=== PATIENT | female | born 1980 | race Caucasian/White ===

== ENCOUNTER 2017-01-25 17:49 | Emergency (ER) | payer BC ==
[2017-01-25 17:59] VITALS: BP 120/80
[2017-01-25] MEDS ORDERED: Sodium Chloride 0.9% 10 ML Syringe FLUSH PRN (18:16)
[2017-01-25] MEDS ORDERED: Sodium Chloride 0.9% 1,000 ML IV ONE (18:16)
[2017-01-25] MEDS ORDERED: Ondansetron 4 MG/2 ML SDV IVPUSH ONE (18:16)
[2017-01-25] MEDS ORDERED: Diatrizoate Meglumine/Diatrizoate Sodium 37% 120 ML Bottle PO ONE (19:29)
[2017-01-25] MEDS ORDERED: Sodium Chloride 0.9% 10 ML Syringe FLUSH ONE (19:29)
[2017-01-25] MEDS ORDERED: Iopamidol 612 MG/ML 100 ML Bottle IVPUSH ONE (19:29)
--- NOTE | 2017-01-25 20:22 | EDM.PDOC ---
ED HPI GI/ABDOMINAL - General Chief Complaint: Abdominal Pain Stated Complaint: LOWER ABDOMINAL PAIN Time Seen by Provider: 01/25/17 18:18 Source of Information: Reports: Patient History Limitations: Reports: No limitations - History of Present Illness INITIAL COMMENTS - FREE TEXT/NARRATIVE: Issue presents for evaluation and treatment of abdominal pain. Patient reports that the vomiting started about one hour prior to arrival in the ER. She states she was making dinner at that time. She describes it as a sharp sensation located in the periumbilical area and lower quadrants. She states that the pain is currently a 4-10 and describes it as a sharp sensation. She reports associated symptoms of nausea, dizziness, fevers and chills. She reports that her last bowel movement was earlier today. She denies any diarrhea, constipation or any bloody stools. She denies any dysuria, hematuria, change in urinary color. Patient denies any chance of . Her last menstrual period was 3 weeks ago. Location: periumbilical Quality: Reports: stabbing Severity: severe - Related Data Allergies/ADRs: Allergies Allergy/AdvReac Type Severity Reaction Status Date / Time No Known Allergies Allergy Verified 01/25/17 17:56 Home Meds: Home Meds . [No Known Home Meds] 01/25/17 [History] Past Medical History - Past Health History Medical/Surgical History: Denies Medical/Surgical History Other Musculoskeletal History: tumor resection out of ankle Social & Family History - Tobacco Use Smoking Status *Q: Current Every Day Smoker Years of Tobacco use: 20 Packs/Tins Daily: 0.5 - Recreational Drug Use Recreational Drug Use: No ED ROS GENERAL - Review of Systems Review Of Systems: See Below Constitutional: Denies: fever GI/Abdominal: Reports: Abdominal pain, Nausea. Denies: Constipation, Diarrhea, Hematochezia, Melena, Vomiting : Reports: no symptoms. Denies: dysuria, hematuria Neurological: Reports: dizziness ED EXAM, GI/ABD - Physical Exam Exam: See Below Exam Limited By: No limitations General Appearance: alert, WD/WN, no apparent distress, other (hirturism to the mandible; acne to the face) Respiratory/Chest: no respiratory distress, lungs clear, normal breath sounds Cardiovascular: normal peripheral pulses, regular rate, rhythm, no murmur GI/Abdominal: normal bowel sounds, soft, McBurney's sign. No: rebound, psoas sign, obturator sign Neurological: alert, oriented, normal cognition Psychiatric: normal affect, normal mood Skin Exam: Warm, Dry, Normal color Course - Vital Signs Last Recorded V/S: Last Vital Signs Temp 36.1 C 01/25/17 17:57 Pulse 84 01/25/17 17:57 Resp 18 01/25/17 17:57 BP 120/80 01/25/17 17:57 Pulse Ox 100 01/25/17 17:57 - Orders/Labs/Meds Orders: Active Orders 24 hr Category Date Time Status Peripheral IV Care [RC] . DIRECTED Care 01/25/17 18:16 Active Abdomen Pelvis w Cont [CT] Stat Exams 01/25/17 18:16 Taken Peripheral IV Insertion Adult [OM.PC] Routine Oth 01/25/17 18:16 Ordered Labs: Laboratory Tests 01/25/17 01/25/17 01/25/17 Range/Units 18:23 18:23 18:23 WBC 10.68 H (3.98-10.04) K/mm3 RBC 3.60 L (3.98-5.22) M/mm3 Hgb 11.2 (11.2-15.7) gm/L Hct 32.6 L (34.1-44.9) % MCV 90.6 (79.4-94.8) fl MCH 31.1 (25.6-32.2) pg MCHC 34.4 (32.2-35.5) g/dl RDW Std Deviation 45.5 (36.4-46.3) fL Plt Count 243 (182-369) K/mm3 MPV 11.4 (9.4-12.3) fl Neutrophils % (Manual) 63 H (40-60) % Band Neutrophils % 0 (0-10) % Lymphocytes % (Manual) 30 (20-40) % Atypical Lymphs % 0 % Monocytes % (Manual) 7 (2-10) % Eosinophils % (Manual) 0 L (0.7-5.8) % Basophils % (Manual) 0 L (0.1-1.2) Platelet Estimate Adequate Plt Morphology Comment Normal RBC Morph Comment Normal Sodium 138 (136-145) mEq/L Potassium 3.3 L (3.5-5.1) mEq/L Chloride 104 (98-107) mEq/L Carbon Dioxide 25 (21-32) mEq/L Anion Gap 12.3 (5-15) BUN 10 (7-18) mg/dL Creatinine 0.8 (0.55-1.02) mg/dL Est Cr Clr Drug Dosing 92.76 mL/min Estimated GFR (MDRD) > 60 (>60) mL/min BUN/Creatinine Ratio 12.5 L (14-18) Glucose 100 (74-106) mg/dL Calcium 8.5 (8.5-10.1) mg/dL Total Bilirubin 0.2 (0.2-1.0) mg/dL AST 21 (15-37) U/L ALT 30 (14-59) U/L Alkaline Phosphatase 52 (46-116) U/L C-Reactive Protein < 0.2 (<1.0) mg/dL Total Protein 6.8 (6.4-8.2) g/dl Albumin 3.5 (3.4-5.0) g/dl Globulin 3.3 gm/dL Albumin/Globulin Ratio 1.1 (1-2) HCG, Qual Negative (NEGATIVE) Urine Color (Yellow) Urine Appearance (Clear) Urine pH (5.0-8.0) Ur Specific [place] (1.005-1.030) Urine Protein (Negative) Urine Glucose (UA) (Negative) Urine Ketones (Negative) Urine Occult Blood (Negative) Urine Nitrite (Negative) Urine Bilirubin (Negative) Urine Urobilinogen (0.2-1.0) Ur Leukocyte Esterase (Negative) Urine RBC (0-5) /hpf Urine WBC (0-5) /hpf Ur Epithelial Cells (0-5) /hpf Urine Bacteria (FEW) /hpf Urine Mucus (FEW) /hpf /05/08 Range/Units 19:08 WBC (3.98-10.04) K/mm3 RBC (3.98-5.22) M/mm3 Hgb (11.2-15.7) gm/L Hct (34.1-44.9) % MCV (79.4-94.8) fl MCH (25.6-32.2) pg MCHC (32.2-35.5) g/dl RDW Std Deviation (36.4-46.3) fL Plt Count (182-369) K/mm3 MPV (9.4-12.3) fl Neutrophils % (Manual) (40-60) % Band Neutrophils % (0-10) % Lymphocytes % (Manual) (20-40) % Atypical Lymphs % % Monocytes % (Manual) (2-10) % Eosinophils % (Manual) (0.7-5.8) % Basophils % (Manual) (0.1-1.2) Platelet Estimate Plt Morphology Comment RBC Morph Comment Sodium (136-145) mEq/L Potassium (3.5-5.1) mEq/L Chloride (98-107) mEq/L Carbon Dioxide (21-32) mEq/L Anion Gap (5-15) BUN (7-18) mg/dL Creatinine (0.55-1.02) mg/dL Est Cr Clr Drug Dosing mL/min Estimated GFR (MDRD) (>60) mL/min BUN/Creatinine Ratio (14-18) Glucose (74-106) mg/dL Calcium (8.5-10.1) mg/dL Total Bilirubin (0.2-1.0) mg/dL AST (15-37) U/L ALT (14-59) U/L Alkaline Phosphatase (46-116) U/L C-Reactive Protein (<1.0) mg/dL Total Protein (6.4-8.2) g/dl Albumin (3.4-5.0) g/dl Globulin gm/dL Albumin/Globulin Ratio (1-2) HCG, Qual (NEGATIVE) Urine Color Yellow (Yellow) Urine Appearance Clear (Clear) Urine pH 6.0 (5.0-8.0) Ur Specific [place] 1.020 (1.005-1.030) Urine Protein Negative (Negative) Urine Glucose (UA) Negative (Negative) Urine Ketones Negative (Negative) Urine Occult Blood Negative (Negative) Urine Nitrite Negative (Negative) Urine Bilirubin Negative (Negative) Urine Urobilinogen 0.2 (0.2-1.0) Ur Leukocyte Esterase Trace H (Negative) Urine RBC 0-5 (0-5) /hpf Urine WBC 0-5 (0-5) /hpf Ur Epithelial Cells 0-5 (0-5) /hpf Urine Bacteria Rare (FEW) /hpf Urine Mucus Not seen (FEW) /hpf Meds: Medications Discontinued Medications Generic Name Dose Route Start Last Admin Trade Name Freq PRN Reason Stop Dose Admin Diatrizoate Meglum/Diatrizoate Sod 90 ml 01/25/17 19:29 01/25/17 19:47 Gastrografin 37% PO 01/25/17 19:30 90 ml ONETIME ONE Administration Sodium Chloride 1,000 mls @ 999 mls/hr 01/25/17 18:16 01/25/17 18:29 Normal Saline IV 01/25/17 19:16 999 mls/hr ONETIME ONE Administration Iopamidol 100 ml 01/25/17 19:29 01/25/17 19:48 Isovue-300 (61%) IVPUSH 01/25/17 19:30 100 ml ONETIME ONE Administration Ondansetron HCl 4 mg 01/25/17 18:16 01/25/17 18:29 Zofran IVPUSH 01/25/17 18:17 4 mg ONETIME ONE Administration Sodium Chloride 10 ml 01/25/17 18:16 01/25/17 18:29 Saline Flush FLUSH 10 ml ASDIRECTED PRN Administration Keep Vein Open Sodium Chloride 10 ml 01/25/17 19:29 01/25/17 19:48 Saline Flush FLUSH 01/25/17 19:30 10 ml ONETIME ONE Administration - Radiology Interpretation Free Text/Narrative:: CT abdomen and pelvis impression per Dr. Mejía: 1.Mild bowel wall thickening within proximal jejunum possibly due to gastroenteritis if this correlates with the patient's clinical symptoms . 2. Ct study of the abdomen and pelvis is otherwise unremarkable. CT Results Date: 01/25/17 - Re-Assessments/Exams Free Text/Narrative Re-Assessment/Exam: 01/25/17 19:23 Labs have returned. WBC slightly elevated at 10.68, hgb is 11.2 and plts are 243 Sodium is 138, potassium is 3.3, chloride is 104. Anion gap is 12.3 CRP is normal at <0.2 HCG is negative. UA is negative for blood, nitrites, leuks, ketones and glucose. 01/25/17 21:[address] results with the patient. Pain has improved since first arriving to the ER. Will discharge home at this time. Departure - Departure Time of Disposition: 21:31 Disposition: Home, Self-Care 01 Condition: good Clinical Impression: Gastroenteritis Instructions: Viral Gastroenteritis, Adult, [id number] Referrals: Gregg Rosenberg MD [Primary Care Provider] - Forms: ED Department Discharge Additional Instructions: OTC tylenol or motrin as needed for pain relief. Rest and drink plenty of fluids. Clear liquids tonight. [place] diet tomorrow as tolerated. Recommendations include bread, rice, applesauce, toast, egg whites, yogurt, etc. Expect to feel ill 1-3 days. ] please return to the ER immediately should your symptoms change or worsen. - My Orders Last 24 Hours: My Active Orders 01/25/17 18:16 Peripheral IV Care [RC] . DIRECTED Abdomen Pelvis w Cont [CT] Stat Peripheral IV Insertion Adult [OM.PC] Routine - Assessment/Plan Last 24 Hours: My Active Orders 01/25/17 18:16 Peripheral IV Care [RC] . DIRECTED Abdomen Pelvis w Cont [CT] Stat Peripheral IV Insertion Adult [OM.PC] Routine
--- NOTE | 2017-01-26 06:34 | CT ---
CT abdomen and pelvis Technique: Multiple axial sections were obtained from above the dome of the diaphragm inferiorly through the pubic symphysis. Intravenous and oral contrast was utilized. Delayed images were also obtained through the bladder. Comparison: No previous abdominal imaging is available. Findings: Small portion of the visualized lung bases are clear. Liver shows no focal parenchymal abnormality. Spleen appears within normal limits. Spleen length measures 11.1 cm. Adrenal glands show no nodule. Gallbladder shows no calcified gallstones. Kidneys show symmetric contrast enhancement without hydronephrosis or mass. Aorta shows no aneurysmal dilatation. Pancreas is unremarkable. No retroperitoneal adenopathy or mesenteric abnormalities are seen. No pelvic mass or adenopathy is seen. Follicles are seen within both ovaries. Dominant follicle within the left ovary measures 2.5 cm. Delayed images shows contrast within the distal ureters and within the bladder. Appendix not definitely visualized. Slight bowel wall thickening is seen within proximal jejunal loops which may represent changes of gastroenteritis. No bowel dilatation is seen. No inflammatory change or free fluid is seen. Bone window settings were reviewed which appear within normal limits for the patient's age. Impression: 1. Mild bowel wall thickening within proximal jejunum possibly due to gastroenteritis if this correlates with the patient's clinical symptoms. 2. CT study of the abdomen and pelvis is otherwise unremarkable. Diagnostic code #3
== END 2017-01-25 21:40 | disposition home or self-care (01) ==
LOC: JD.ED 17:49
DX: K52.9 Noninfective gastroenteritis and colitis, unspecified (principal); F17.210 Nicotine dependence, cigarettes, uncomplicated
CPT/HCPCS: 36415; 74177; 80053; 81001; 84703; 85025; 86140; 96361; 96374; 99284; J2405; J7040; J7050; Q9963; Q9967